=== PATIENT | female | born 1985 | race Caucasian/White ===

== ENCOUNTER 2020-11-05 05:39 | Day surgery (SDC) | payer OTHER ==
[~2020-11-05] VITALS: Ht 172.7 cm; Wt 73.4 kg
[2020-11-05] MEDS ORDERED: ZOFRAN ODT PO (06:30)
[2020-11-05] MEDS ORDERED: FLUO40CA2 PO (06:30)
[2020-11-05 06:45] LABS: BASOPHILS % (AUTO) 1 % (0-1); EOSINOPHILS % (AUTO) 2 % (1-7); LYMPHOCYTES % (AUTO) 45 % (22-44); MEAN CORPUSCULAR HEMOGLOBIN 30.5 pg (27.0-34.8); MEAN CORPUSCULAR HGB CONC 33.7 g/dL (32.4-35.8); MEAN PLATELET VOLUME 8.5 fL (7.4-10.4); MONOCYTES % (AUTO) 8 % (2-9); NEUTROPHILS % (AUTO) 45 % (42-75); PLATELET COUNT 132 x10^3/uL (130-400); RED BLOOD COUNT 4.33 x10^6/uL (3.82-5.3); RED CELL DISTRIBUTION WIDTH 13.5 % (9.6-15.2)
[2020-11-05 06:47] VITALS: BP 102/70
[2020-11-05] MEDS ORDERED: MISOPROSTOL 200 MCG TABLET ONE (06:57)
[2020-11-05] MEDS ORDERED: METHYLERGONOVINE 0.2 MG/ML IM ONE (06:57)
[2020-11-05] MEDS ORDERED: OXYTOCIN 10 UNITS/ML, 1ML ONE (06:57)
[2020-11-05] MEDS ORDERED: BUPIVACAINE/PF 0.25% ONE (06:57)
[2020-11-05] MEDS ORDERED: SILVER NITRATE STICK TP ONE (06:57)
[2020-11-05] MEDS ORDERED: CHLORHEXIDINE 15 ML UDC ONE (07:26)
[2020-11-05] MEDS ORDERED: MIDAZOLAM 1 MG/ML, 2ML ONE (07:28)
[2020-11-05] MEDS ORDERED: FENTANYL PF 100 MCG/2ML ONE (07:28)
[2020-11-05] MEDS ORDERED: LACTATED RINGERS 1,000 ML IV SCH (07:30)
[2020-11-05] MEDS ORDERED: CHLORHEXIDINE 15 ML UDC PO ONE (07:30)
[2020-11-05] MEDS ORDERED: BUPIVACAINE/PF 0.25% INFIL ONE (07:54)
[2020-11-05] MEDS ORDERED: LORazepam 2 MG/ML, 1ML IVPush PRN (08:00)
[2020-11-05] MEDS ORDERED: hydrALAzine 20 MG/ML, 1ML IV PRN (08:00)
[2020-11-05] MEDS ORDERED: ONDANSETRON 2MG/ML, 2ML IVPush PRN (08:00)
[2020-11-05] MEDS ORDERED: ACETAMINOPHEN 325 MG TABLET PO PRN (08:00)
[2020-11-05] MEDS ORDERED: HYDROmorphone 1 MG/ML, 1ML INJ IVPush PRN (08:00)
[2020-11-05] MEDS ORDERED: PROMETHAZINE 25 MG SUPP PR PRN (08:00)
[2020-11-05] MEDS ORDERED: OXYcodone 5 MG/5 ML ORAL.SOL UDC PO PRN (08:00)
[2020-11-05] MEDS ORDERED: MEPERIDINE/PF 25MG/0.5ML IVPush PRN (08:00)
[2020-11-05] MEDS ORDERED: FENTANYL PF 100 MCG/2ML IV PRN (08:00)
[2020-11-05] MEDS ORDERED: LABETALOL 5MG/ML, 20ML IV PRN (08:00)
[2020-11-05] MEDS ORDERED: PROMETHAZINE 25 MG/ML, 1ML IVPush PRN (08:00)
[2020-11-05] MEDS ORDERED: METHOCARBAMOL 1,000 MG in DEXTROSE 5% 100 ML IV PRN (08:00)
[2020-11-05] MEDS ORDERED: KETOROLAC 30 MG/1 ML ONE (08:02)
[2020-11-05] MEDS ORDERED: MISOPROSTOL 200 MCG TABLET PO ONE (08:08)
[2020-11-05] MEDS ORDERED: PROPOFOL 10 MG/ML, 20ML ONE (08:24)
[2020-11-05] MEDS ORDERED: CEFAZOLIN 1,000 MG ONE (08:24)
[2020-11-05] MEDS ORDERED: ONDANSETRON 2MG/ML, 2ML ONE (08:24)
[2020-11-05] MEDS ORDERED: DEXAMETHASONE 4 MG/ML, 1ML ONE (08:24)
[2020-11-05 08:34] VITALS: BP 113/68
[2020-11-05] MEDS ORDERED: RHOGAM FROM BLOOD BANK 1 NOTE EA IM/IV ONE (09:00)
== END 2020-11-05 10:00 | disposition home or self-care (01) ==
LOC: OUT 05:39
PROVIDERS: ATTEND Obstetrics & Gynecology
DX: O02.1 Missed abortion (principal); G43.909 Migraine, unspecified, not intractable, without status migrainosus; F32.9 Major depressive disorder, single episode, unspecified; Z79.899 Other long term (current) drug therapy; Z88.1 Allergy status to other antibiotic agents; Z91.040 Latex allergy status; Z98.890 Other specified postprocedural states
CPT/HCPCS: 36415; 59820; 85025; 86850; 86900; 88305; J0690; J1100; J1885; J2210; J2250; J2405; J2704; J2790; J3010; J7120; J2590